=== PATIENT | male | born 1970 | race Caucasian/White ===

== ENCOUNTER 2023-04-26 05:28 | Day surgery (SDC) | payer OTHER ==
[2023-04-20 10:34] LABS: Absolute Lymphocytes (CBC) 2.4 K/uL (0.7-4.9); Hematocrit 51.9 % (39.6-49.0); Lymphocytes % 35.9 % (15.3-44.8); MPV 7.9 fL (7.6-11.3); RBC Red Blood Cell Count 5.77 M/uL (4.33-5.43)
[2023-04-20 10:47] LABS: Potassium 4.3 mEq/L (3.5-5.1)
--- NOTE | 2023-04-20 12:12 | EKG ---
Test Date: 2023-04-20 Test Time: 10:01:46 Hand Bootmaker: DHEERAJ MEASUREMENT RESULTS: Intervals: Rate: 58 DC: 174 QRSD: 88 QT: 418 QTc: 410 [place]: P: 43 DC: 174 QRS: 19 T: 39 INTERPRETIVE STATEMENTS: Sinus bradycardia Otherwise normal ECG Compared to ECG 08/21/1995 07:33:00 No significant changes Electronically Signed On 04-20-23 12:11:42 CDT by Neto Oro
[2023-04-26] MEDS ORDERED: CEFAZOLIN SODIUM 1 GM/VIAL ONE (05:53)
[2023-04-26] MEDS ORDERED: NA CHLORIDE 0.9% 1,000 ML ONE ×2 (05:53→08:34)
[2023-04-26] MEDS ORDERED: LIDOCAINE 2% MPF 5 ML VIAL ONE ×2 (06:40→07:02)
[2023-04-26] MEDS ORDERED: dexAMETHasone 10 MG/ML VIAL ONE ×2 (06:40→07:33)
[2023-04-26] MEDS ORDERED: ROPLVACAINE HCL 20 ML ONE ×2 (06:41→06:44)
[2023-04-26] MEDS ORDERED: MIDAZOLAM HCL 2 MG/2 ML INJ ONE (06:41)
[2023-04-26] MEDS ORDERED: EPINEPHRINE/PF 1 MG/ML AMP ONE ×2 (06:41→06:42)
[2023-04-26] MEDS ORDERED: FENTANYL CITR 100 MCG/2 ML ONE (06:41)
[2023-04-26] MEDS ORDERED: Ringers Lactate 1,000 ML IV ONE (06:43)
[2023-04-26] MEDS ORDERED: ROCURONIUM 50 MG/5 ML VIAL IV ONE (07:02)
[2023-04-26] MEDS ORDERED: propofoL 200 MG/20 ML VIAL IV ONE (07:02)
[2023-04-26] MEDS ORDERED: ONDANSETRON 4 MG/2 ML VIAL ONE (07:34)
[2023-04-26] MEDS ORDERED: EPHEDRINE SULF 50 MG/ML VIAL ONE (07:58)
[2023-04-26] MEDS ORDERED: KETOROLAC 30 MG/ML INJ ONE (09:10)
[2023-04-26 11:02] VITALS: O2SAT 95
[2023-04-26 11:04] VITALS: TEMP 96.1
[2023-04-26 11:07] VITALS: BP 126/80
--- NOTE | 2023-04-26 11:53 | OP ---
Date of Procedure: 04/26/2023 Surgeon: Boo Tadeo MD Preoperative Diagnosis: Right very large rotator cuff tear with delayed presentation. Postoperative Diagnosis: Right very large rotator cuff tear with delayed presentation with subacromi al impingement, fraying intra-articularly. Procedures: 1.Arthroscopy with limited debridement of undersurface of the rotator cuff and synovial tissue. 2.Mini open subacromial decompression. 3.Rotator cuff repair. Estimated Blood Loss: 20 cc. Complications: There were no complications. Indications For Operation: Mr. Welch is a 52-year-old gentleman, who unfortunately injured his s houlder several months ago. He came to see in my office and because of his presentation and history, decided to proceed with the MRI as soon as possible. The MRI returned, which demonstrated a very la rge retracted rotator cuff tear, which was felt to be most likely traumatic. Therefore, he was set u p for operative intervention as soon as feasible and he is told that this very large rotator cuff tea r that difficult to repair and definitely needed to move forward with this when possible. He says he understands things as presented. He understands risks, benefits, and alternatives associ ated with the procedure and agrees to proceed. Description Of Procedure: The patient has a block in the preop holding area and he was taken back to the room. General anesthesia was easily obtained by staff. Following this, he was then placed in a beach chair position. His right upper extremity was then prepped and draped in the usual sterile fa shion for rotator cuff repair and arthroscopy. After this, a standard posterior arthroscopy incision was made and the arthroscopic camera was placed atraumatically with 1 pass. The shoulder was examin ed and biceps anchor appeared to be more or less intact; however, there was definitely an unroofing a nd the free margin of the rotator cuff was easily seen demonstrating a very large tear. There was so me debridement done of the undersurface as well as some synovial tissue and inspection of the biceps tendon was completed and this was done through an anterior portal. After this, the arthroscopic inst ruments were removed. Posterior portal was stapled shut and the arm was then prepped and draped in t he sterile fashion for mini open repair, and all gloves and instruments were changed. After this, a standard anterior incision was made longitudinally near the mid section of the acromion at the anteri or edge. This was taken down carefully through the skin and soft tissues. Meticulous hemostasis kahlil ng maintained using Bovie electrocautery. This leads down to the deltoid, which was then gently dylon diana from the anterior acromion and tagged for later repair. The coracoacromial ligament was snipped slightly to allow for better visualization. After this, the was then placed in the subacr omial space and an anterior as well as subacromial decompression was done to give better visualizatio n and avoid anteriorly sloping acromion. After this, the shoulder was inspected. The rotator cuff w as not visible on initial inspection with simple rotation of the arm demonstrating that the head was completely uncovered. After this, a finger was placed and the rotator cuff was easily palpable and i t was freed using a finger. It was then brought forward using and a stay stitch was place d. It was then further freed using a finger and sharp instruments were used to free this up and we w ere able to get fairly good traction and it appears that it can reattach to its original footplate. After this, 3 suture anchors were then placed in the footprint and the rotator cuff was then brought over. It was sequentially tied from posterior to anterior. The most anterior suture was a very poor material and needed to be abandoned, but I do feel that we do have good 2 suture anchors with fairly good coverage and as much cover as possible given the condition of the tissues. After this, it was irrigated and the deltoid was repaired back to the acromion via bone tunnel using an Ethibond followe d by over-sewing with Vicryl. The skin was then closed. The patient was placed in Aquacel dressing as well as in an abduction pillow and the patient was then taken to the re covery room. YESICA Voice ID: [id number] Report ID: [id number]
== END 2023-04-26 10:50 | disposition home or self-care (01) ==
LOC: OR 05:28
PROVIDERS: ATTEND Orthopaedic Surgery
PROC: 0RNJ4ZZ Release Right Shoulder Joint, Percutaneous Endoscopic Approach (ICD-10-PCS; 2023-04-26)
PROC: 0LM14ZZ Reattachment of Right Shoulder Tendon, Percutaneous Endoscopic Approach (ICD-10-PCS; principal; 2023-04-26 07:00)
DX: M75.121 Complete rotator cuff tear or rupture of right shoulder, not specified as traumatic (principal); S46.011D Strain of muscle(s) and tendon(s) of the rotator cuff of right shoulder, subsequent encounter
CPT/HCPCS: 93005; 85025; 80048; 36415; 82947; 29827; 29826; 29822; J2704; J0171 ×2; J2001 ×2; J2250; J3010; J1100 ×2; J2405; J7120; J7030 ×2; J0690